=== PATIENT | female | born 1950 | race Caucasian/White ===

== ENCOUNTER → 2021-02-18 | Outpatient (CLI) | payer MEDICARE, OTHER ==
[~2021-02-18] MED LIST: ATIVAN0.5 MG PO; ATORVASTATIN CA80 MG PO; ELIQUIS5 MG PO; FOLIC ACID 1 MG1 MG PO; HYGROTON TAB 2525 MG PO; NORCO 10-325 T1 EACH PO; NORCO 5-325 TA1 EACH PO; NORVASC10 MG PO; PROTONIX40 MG PO; ROBAXIN-750750 MG PO; ROPINIROLE HC0.25 MG PO; SINGULAIR10 MG PO; ZOLOFT100 MG PO
== END ==
LOC: US 15:20
DX: Z01.89 Encounter for other specified special examinations (principal); M71.22 Synovial cyst of popliteal space [Baker], left knee; M71.21 Synovial cyst of popliteal space [Baker], right knee
CPT/HCPCS: 93925